=== PATIENT | female | born 1990 | race Caucasian/White ===

== ENCOUNTER 2021-10-29 12:07 | Outpatient (CLI) | payer BC, SELFPAY ==
[2021-10-29 15:26] LABS: TSH With Reflex to FT4* 0.932 uIU/mL (0.270-4.200)
--- OUTSIDE RECORDS SUMMARY | 2021-10-30 06:21 | XMS_ITS | Encounter Summary ---
:1990 Author Organization [facility] Address [address] [place] [address] Care Team Providers Name Role Phone Unavailable Primary Care Provider Unavailable Encounter Details Date Type Department Care Team Description 07/27/2019 Clinical Communication Department of [facility] Faye Minaya [facility] Yvan Serrano [facility], [address] [address] [place], [place] [phone] (Work) [phone] Social History Tobacco Use Types Packs/Day Years Used Date Smoking Tobacco: Never Assessed Sex Assigned at Date Recorded Female 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 - 07/29/2019 7:36 AM CDT That is fine; pend preferred BC and, if she is doing fine; ok to wait for visit until regular physical is due Telephone Encounter - Berenice Garrido LSheliaPSheliaNShelia - 07/27/2019 3:03 PM CDT Collins Foote: Patient is requesting you for provider. Would you be willing to see and prescribe control for her until that appt. Please review and advise. Telephone Encounter - Xin Leung - 07/27/2019 9:10 AM CDT Patient was seen at the [facility] in March. Her insurance has changed and she would like to switch her care to [place] when she is able to. She is wondering if she would be able to get aprescription for her control through on of our providers until she can get a pcp established. She would like to see Dr. Minaya if possible. Please give her a call back at [phone] to discuss further. Thank you. documented in this encounter Plan of Treatment Not on filedocumented as of this encounter Visit Diagnoses Not on filedocumented in this encounter
--- OUTSIDE RECORDS SUMMARY | 2021-10-30 06:21 | XMS_ITS | Encounter Summary ---
:1990 Author Organization [facility] Address [address] [place] [address] Care Team Providers Name Role Phone Unavailable Primary Care Provider Unavailable Encounter Details Date Type Department Care Team Description 03/28/2021 Admin Visit Department of Family Collin Nix, Medicine, 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
--- OUTSIDE RECORDS SUMMARY | 2021-10-30 06:21 | XMS_ITS | Encounter Summary ---
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
--- OUTSIDE RECORDS SUMMARY | 2021-10-30 06:21 | XMS_ITS | Encounter Summary ---
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 An appointment is required for testing, please call [phone] Thursday-Thursday 7am to 6pm and Thursday & Thursday 9am to 4pm to schedule an appointment. Testing hours are 8am - 4:30pm daily. You can also schedule via your Patient Online Services account., Please avoid using public transportation per CDC recommendation. If you do not have personal transportation please self- quarantine until a personal transportation option is available. *Reminder if sending patient for testing in [facility] or [facility], route encounter to the correct testing pool. documented in this encounter Plan of Treatment Not on filedocumented as of this encounter Visit Diagnoses Not on filedocumented in this encounter
--- OUTSIDE RECORDS SUMMARY | 2021-10-30 06:21 | XMS_ITS | Encounter Summary ---
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
--- OUTSIDE RECORDS SUMMARY | 2021-10-30 06:21 | XMS_ITS | Encounter Summary ---
:1990 Author Organization [facility] Address [address] [place] [address] Care Team Providers Name Role Phone Unavailable Primary Care Provider Unavailable Encounter Details Date Type Department Care Team Description 01/24/2021 Admin Visit Department of Family Collin Nix, Medicine, 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
--- OUTSIDE RECORDS SUMMARY | 2021-10-30 06:21 | XMS_ITS | Encounter Summary ---
:1990 Author Organization [facility] Address [address] [place] [address] Care Team Providers Name Role Phone Unavailable Primary Care Provider Unavailable Reason for Visit Reason Comments Med Refill Encounter Details Date Type Department Care Team Description 08/14/2020 Refill Department of [facility] Akiko Minaya D.O. 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 - 08/15/2020 10:39 AM CDT Refilled short course of prescription. Needs appt for further refills as she has not been seen in over 1 year. Please call to schedule a 30 min med check appt. documented in this encounter Plan of Treatment Not on filedocumented as of this encounter Visit Diagnoses Not on filedocumented in this encounter
--- OUTSIDE RECORDS SUMMARY | 2021-10-30 06:21 | XMS_ITS | Clinical Summary ---
:1990 Author Organization [facility] Address [address] [place] [address] Care Team Providers Name Role Phone Unavailable Primary Care Provider Unavailable Source Comments Patient records contain information from all sites at [facility]. For routine questions regarding patient records, call [phone] during business hours, M-F 8:00 AM - 5:00 PM Central Time. 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 Plan of Treatment Health Maintenance Due Date Last Done Comments Cervical Cancer Screening 1990 HIV Screening 1990 Hepatitis C Screening 1990 Depression Screening (Annual 03/23/2021 PHQ-2) Influenza Vaccine (#1) 2022 01/06/2019 DTaP,Tdap,and Td Vaccines (4 11/01/2023 10/31/2013, - Td or Tdap) 11/06/2010, 07/12/2002 Hepatitis B Vaccines Completed 2003, 10/18/2002, 07/12/2002 COVID-19 Vaccine Completed 02/28/2021, 06/27/2020 Pneumococcal vaccine (0-64 Aged Out No lo nger eligible based years) on patient's age to complete this to [facility] Insurance Payer Benefit Plan Subscriber ID Effective Dates Phone Address Type / Group [facility] [id number] 2021-Lenore [phone] [address] [address] [address] [facility] [address] [place] [address]
--- OUTSIDE RECORDS SUMMARY | 2021-10-30 06:21 | XMS_ITS | Encounter Summary ---
:1990 Author Organization [facility] Address [address] [place] [address] Care Team Providers Name Role Phone Unavailable Primary Care Provider Unavailable Encounter Details Date Type Department Care Team Description 04/01/2021 Admin Visit Department of Family Collin Nix, Medicine, 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
--- OUTSIDE RECORDS SUMMARY | 2021-10-30 06:21 | XMS_ITS | Encounter Summary ---
:[address] 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
--- OUTSIDE RECORDS SUMMARY | 2021-10-30 06:21 | XMS_ITS | Encounter Summary ---
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
--- OUTSIDE RECORDS SUMMARY | 2021-10-30 06:21 | XMS_ITS | Encounter Summary ---
:1990 Author Organization [facility] Address [address] [place] [address] Care Team Providers Name Role Phone Unavailable Primary Care Provider Unavailable Reason for Visit Reason Onset Date Comments Outpatient COVID-19 Testing 02/10/2020 Encounter Details Date Type Department Care Team Description 02/10/2020 Admin Visit Department of Family Infecti on Upper Medicine, Professional and R espiratory (Primary Dx) [facility] in [place], [place] [address] [place] [address] Social History Tobacco Use Types Packs/Day Years Used Date Smoking Tobacco: Never Assessed Sex Assigned at Date Recorded Female 03/28/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 - 02/10/2020 6:35 PM CST Encounter created for the drive-through COVID-19 testing. O/VIDEO ENGINEER documented in this encounter Miscellaneous Notes Result Encounter Note - Wellington Fritz M.D. - 02/11/2020 8:58 PM AUDIO/VIDEO ENGINEER PCR positive for SARS-CoV-2, the virus that causes COVID-19 infection. Based on chart review patientdoes not have high risk factors for complications. Will not be enrolled in CFCT. CFCT MAA, please send CFCTLOWRISKLETTER and portal message (if patient has the portal). Please also alert the patient's [facility] PCP (if applicable). You recently tested positive for SARS-CoV-2 by nasopharyngeal PCR, the gold standard test for diagnosing COVID-19 infection. This letter contains clinical and isolation recommendations for patients with COVID-19. If you have questions about the recommendations, please contact your local primary care physician or local health department. If you have a serious underlying medical condition (such as heart disease, lung disease or decreased functioning of your immune system) please respond to us so that we can assess your risk of COVID complications. If you have upcoming on-campus appointments, we recommend delaying non-urgent appointments until youhave recovered from your COVID infection. Our team will reach out to the area you are scheduled to be seen in. Please do not come to campus until given the ok to do so by a [facility] merchandiser retail representative. Please continue to monitor your symptoms. If you develop any of the following symptoms, please call your primary care physician or go to the Emergency Department for evaluation Worsened shortness of breath New or worsening cough New productive cough or cough with blood New chest pain or pain with breathing Fevers, chills, sweats Vomiting or diarrhea Lightheadedness New temperature > 38.3 ??C Fast heart rate Fast breathing rate If you need to go into the Emergency Room or other healthcare facility, please: Inform EMS of positive COVID result and wear a mask prior to EMS arrival if available. If well enough to transport yourself to the emergency room, you should use a private vehicle (not use taxi, ride-share or public transport). We strongly recommend continuing self-isolation until the following criteria are met and you are released by your local public health department if applicable: Minimum of 10 days since onset of symptoms OR from positive PCR test if asymptomatic AND At least 3 days (72 hours) have passed since recovery defined as resolution of fever without the useof fever-reducing medications AND Improvement in symptoms (e.g., cough, shortness of breath, diarrhea) The above isolation recommendation may need to be adjusted based on the clinical course. Https://www.youtube.com/watch?time_continue=6&v=ZuYF8rAmIBy&feature=emb_logo Testing prior to release from isolation is NOT recommended by CDC or [facility] Infection Prevention and Control for clinical purposes except in extremely rare cases. The patient was also advised to follow final recommendations as per local public health department/occupational health if relevant. Please contact your employer's occupational health division to notify them of positive test If the patient and/or their employer have questions about return to work best practices, they shouldcontact [facility] Occupational Medicine at [email or web address]. The patient should receive approval from their employer's occupational health division before returning to work. Recommend self isolation for all household members/close contacts. If any of these individuals are immunocompromised or have serious chronic medical conditions, pleasehave them contact their primary care physician to let them know they have been exposed to close contact with COVID-19 If unwell, recommend contacting their health care provider. Presenting directly to of the ED can be considered in the case of severe symptoms. These individuals should call ahead to minimize wait times. The [facility] COVID Triage Line can bereached at [phone]. COVID-19 is a notifiable disease and you will be contacted by [employer] for contact tracing. Please review the links below for additional education. [facility] recommendations on isolation https://www.[facility].org/patient-education?VID=VID-73390368 Additional information about COVID-19 https://www.cdc.gov/coronavirus/2019-ncov/ Cognitive Behavior Therapy-Insomnia to help improve sleep https://[facility]/PatientEducation/PatientLearning/index.html#/ Building Resiliency During the COVID-19 Pandemic https://[facility]2020/PatientEducation/content/index.html#/ Consider donating convalescent plasma once you have recovered from your illness (14 days after symptoms have resolved) Survey to assess eligibility: https://redcap2.[facility].edu/redcap/surveys/?s=6TLL3TBZ0G and/ or contact bassam onvalescent.plasma@[facility] More information is available at https://www.uscovidplasma.org/ https://ccpp19.org/ https://covidplasma.org/ COVID-19 Frontline Care Team [facility] [place] [facility] O/VIDEO ENGINEER documented in this encounter Plan of Treatment Not on filedocumented as of this encounter Procedures Procedure Name Priority Date/Time Associated Diagnosis Comme nts SARS CORONAVIRUS-2 Routine 02/10/2020 6:27 PM Infection Upper Results for this RNA, V AUDIO/VIDEO ENGINEER Respiratory procedure are i n the results section. documented in this encounter Results (ABNORMAL) SARS Coronavirus-2 RNA, V Symptomatic (02/10/2020 6:27 PM AUDIO/VIDEO ENGINEER) [facility] Method Time Signature SARS-CoV-2 Swab, 02/11/2020 ECLR Specimen Nasopharynx 7:05 PM AUDIO/VIDEO ENGINEER Source SARS CoV-2 Detected (C) Undetected 02/11/2020 ECLR RNA, TMA 7:05 PM AUDIO/VIDEO ENGINEER Comment: SARS-CoV-2 RNA present. ----ADDITIONAL INFORMATION---- This test is performed using the Aptima SARS-CoV-2 assay ([employer] which has received Emergency Use Authori zation (EUA) by the U.S. Food and Drug Administration. Fact sheets for this Emergency Use Autho rization (EUA) assay can be found at the following links: For Healthcare Providers: https://www.STEMpowerkids a.gov/media/936089/download For Patients: https://www.fda.gov/media/ 814135/download Specimen Anatomical Collection Method Collection Time Receive d Time (Source) Location / / Volume Laterality Varies 02/10/2020 6:27 PM 0 9:26 (Nasopharynx) AUDIO/VIDEO ENGINEER PM AUDIO/VIDEO ENGINEER Collin Nix P.A.-C. LAB MICROBIOLOGY - GENERAL O MADY Performing Organization Address City/State/ZIP Code Phon e Number [facility]- [address] [place] [phone] [facility] [place] [address] [address] documented in this encounter Visit Diagnoses Diagnosis Infection Upper Respiratory - Primary documented in this encounter Additional Health Concerns Infection Onset Date Last Indicated Resolved Time COVID19 Pending 02/09/2020 02/09/2020 02/11/2020 7:05 PM AUDIO/VIDEO ENGINEER documented as of this encounter
--- OUTSIDE RECORDS SUMMARY | 2021-10-30 06:21 | XMS_ITS | Encounter Summary ---
:1990 Author Organization [facility] Address [address] [place] [address] Care Team Providers Name Role Phone Unavailable Primary Care Provider Unavailable Reason for Referral Specialty Diagnoses / Procedures Referred By Contact Refer red To Contact Milagros Corey M.D. [facility] [address] [place] [address] Referral ID Status Reason Start Date Expiration Date Visits Requ ested Visits Authorized MEN'S TENNIS COACH Encounter Details Date Type Department Care Team Description 01/30/2021 Orders Only [facility] P[facility] Milagros Corey M.D. [address] [place], [place] [phone] (Wo rk) Social History Tobacco Use Types Packs/Day Years Used Date Smoking Tobacco: Never Assessed Sex Assigned at Date Recorded Female 03/28/2021 8:43 AM HEAD MEN'S TENNIS COACH documented as of this encounter Plan of Treatment Scheduled Referrals Name Type Priority Associated Order Schedule Diagnoses Covid immunization Outpatient Referral Routine Ex pected: office visit Booster 021 (Approximate), Expires: 01/30/2022 documented as of this encounter Visit Diagnoses Not on filedocumented in this encounter
--- OUTSIDE RECORDS SUMMARY | 2021-10-30 06:21 | XMS_ITS | Encounter Summary ---
:1990 Author Organization [facility] Address [address] [place] [address] Care Team Providers Name Role Phone Unavailable Primary Care Provider Unavailable Reason for Visit Reason Onset Date Comments Outpatient COVID-19 Testing 02/09/2020 Encounter Details Date Type Department Care Team Description 02/09/2020 External Outreach Department of [facility] [place] Rosette Nix Infection Upper Medicine, [place] T, P.[facility] Res[facility] (Primary Clinic, in [place], [address]) [place], [place] [address] [address] [place], [place] [phone] (Work) [phone] Social History Tobacco Use Types Packs/Day Years Used Date Smoking Tobacco: Never Assessed Sex Assigned at Date Recorded Female 03/28/2021 8:43 AM MANAGER REVENUE documented as of this encounter Progress Notes Chaya Tirado, LSheliaP.N. - 02/09/2020 2:45 PM CST Encounter created for the drive-through COVID-19 testing. GER REVENUE documented in this encounter Plan of Treatment Not on filedocumented as of this encounter Visit Diagnoses Diagnosis Infection Upper Respiratory - Primary documented in this encounter Additional Health Concerns Infection Onset Date Last Indicated Resolved Time COVID19 Pending 02/09/2020 02/09/2020 02/11/2020 7:05 PM MANAGER REVENUE documented as of this encounter
--- OUTSIDE RECORDS SUMMARY | 2021-10-30 06:21 | XMS_ITS | Encounter Summary ---
:1990 Author Organization [facility] Address [address] [place] [address] Care Team Providers Name Role Phone Unavailable Primary Care Provider Unavailable Encounter Details Date Type Department Care Team Description 02/01/2021 Orders Only RST PCP TH Milagros Barajas M.D. 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
--- OUTSIDE RECORDS SUMMARY | 2021-10-30 06:21 | XMS_ITS | Encounter Summary ---
:1990 Author Organization [facility] Address [address] [place] [address] Care Team Providers Name Role Phone Unavailable Primary Care Provider Unavailable Reason for Visit Reason Onset Date Comments Testing For Upper Respiratory Virus Symptoms 04/01/2021 Encounter Details Date Type Department Care Team Description 04/01/2021 External Outreach Department of [facility] Rosette Nix Contact With And (Suspected) Exposure To COVID-19; Medicine, [place] T, P.A.-C. 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 - 04/01/2021 8:07 AM CST Encounter created for symptomatic infectious disease screening with possible COVID, Influenza, RSV, and/or Group A Strep testing. HOUSE HELPER documented in this encounter Plan of Treatment Not on filedocumented as of this encounter Procedures Procedure Name Priority Date/Time Associated Diagnosis Comme nts SARS CORONAVIRUS-2 Routine 04/01/2021 8:58 AM Contact With And Results for this RNA, V DYE HOUSE HELPER (Suspected) Exposure procedu re are in To COVID-19 the results section. documented in this encounter Results SARS Coronavirus-2 RNA, V Symptomatic (04/01/2021 8:58 AM DYE HOUSE HELPER) [facility] Method Time Signature SARS-CoV-2 Swab, 04/02/2021 ECLR Specimen Nasopharynx 10:40 AM Source DYE HOUSE HELPER SARS CoV-2 Undetected Undetected 04/02/2021 ECLR RNA, TMA 10:40 AM DYE HOUSE HELPER Comment: SARS-CoV-2 RNA absent. This result does not rule out COVID-19 in the patient, as the sensitivity of the test depends o n the timing of the specimen collection and the quality of the specim en. Result should be correlated with patient's history and clinical presentat ion. ----ADDITIONAL INFORMATION---- This molecular amplification test was pe rformed using the Aptima SARS-CoV-2 assay ([employer] on the [employer] tem under emergency use authorization (EUA) by the U.S. Food and Drug Administ ration. Fact sheets for this EUA assay can be fo und at the following links: For Healthcare Providers: https://www.Hojoki a.gov/media/376957/download For Patients: https://www.fda.gov/media/ 326612/download Specimen Anatomical Collection Method Collection Time Receive d Time (Source) Location / / Volume Laterality Varies 04/01/2021 8:58 AM 3:11 (Nasopharynx) DYE HOUSE HELPER PM DYE HOUSE HELPER Collin Nix P.A.-C. LAB MICROBIOLOGY - GENERAL O MADY Performing Organization Address City/State/ZIP Code Phon e Number [facility]- [address] [place] [phone] [facility] [place] [address] System [address] documented in this encounter Visit Diagnoses Diagnosis Contact With And (Suspected) Exposure To COVID-19 Infection Upper Respiratory documented in this encounter Additional Health Concerns Infection Onset Date Last Indicated Resolved Time COVID19 Pending 04/01/2021 04/01/2021 04/02/2021 10:41 AM DYE HOUSE HELPER documented as of this encounter
--- OUTSIDE RECORDS SUMMARY | 2021-10-30 06:21 | XMS_ITS | Encounter Summary ---
:[address] [facility] Address [address] [place] [address] Care Team Providers Name Role Phone Unavailable Primary Care Provider Unavailable Encounter Details Date Type Department Care Team Description 04/06/2021 Admin Visit Department of Family Collin Nix, Medicine, [facility] 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
--- OUTSIDE RECORDS SUMMARY | 2021-10-30 06:21 | XMS_ITS | Encounter Summary ---
:1990 Author Organization [facility] Address [address] [place] [address] Care Team Providers Name Role Phone Unavailable Primary Care Provider Unavailable Reason for Visit Reason Onset Date Comments Testing For Upper Respiratory Virus Symptoms 01/23/2021 Encounter Details Date Type Department Care Team Description 01/23/2021 External Outreach Department of [facility] Rosette Nix Contact With And Medicine, [place] T P.A.-CShelia (Suspected) Exposure Clinic, in [address] To COVID-19 (Primary [place], [place] Dx) [address] [place] [address] [place], [place] [phone] (Work) [phone] Social History Tobacco Use Types Packs/Day Years Used Date Smoking Tobacco: Never Assessed Sex Assigned at Date Recorded 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 documented in this encounter Plan of Treatment Not on filedocumented as of this encounter Procedures Procedure Name Priority Date/Time Associated Diagnosis Comme nts SARS CORONAVIRUS-2 Routine 01/24/2021 11:35 AM Contact With An d Results for this RNA, V CDT (Suspected) Exposure procedu re are in To COVID-19 the results section. documented in this encounter Results SARS Coronavirus-2 RNA, V Symptomatic (01/24/2021 11:35 AM CDT) [facility] Method Time Signature SARS-CoV-2 Swab, 01/24/2021 ECLR Specimen Nasopharynx 9:29 PM CDT Source SARS CoV-2 Undetected Undetected 01/24/2021 ECLR RNA, TMA 9:29 PM CDT Comment: SARS-CoV-2 RNA absent. This result does not rule out COVID-19 in the patient, as the sensitivity of the test depends o n the timing of the specimen collection and the quality of the specim en. Result should be correlated with patient's history and clinical presentat ion. ----ADDITIONAL INFORMATION---- This molecular amplification test was pe rformed using the Aptima SARS-CoV-2 assay ([employer] on the [employer] tem under emergency use authorization (EUA) by the U.S. Food and Drug Administ ration. Fact sheets for this EUA assay can be fo und at the following links: For Healthcare Providers: https://www.fd a.gov/media/429252/download For Patients: https://www.fda.gov/media/ 938588/download Specimen Anatomical Collection Method Collection Time Receive d Time (Source) Location / / Volume Laterality Varies 01/24/2021 11:35 01/24/2021 2:50 (Nasopharynx) AM CDT PM CDT Collin Nix P.A.-C. LAB MICROBIOLOGY - GENERAL O MADY Performing Organization Address City/State/ZIP Code Phon e Number [facility]- [address] [place] [phone] [facility] [place] [address] System in [address] documented in this encounter Visit Diagnoses Diagnosis Contact With And (Suspected) Exposure To COVID-19 - Primary documented in this encounter Additional Health Concerns Infection Onset Date Last Indicated Resolved Time COVID19 Pending 01/23/2021 01/24/2021 01/24/2021 9:30 PM CDT documented as of this encounter
--- OUTSIDE RECORDS SUMMARY | 2021-10-30 06:21 | XMS_ITS | Encounter Summary ---
:1990 Author Organization [facility] Address [address] [place] [address] Care Team Providers Name Role Phone Unavailable Primary Care Provider Unavailable Reason for Visit Reason Onset Date Comments Testing For Upper Respiratory Virus Symptoms 04/05/2021 Encounter Details Date Type Department Care Team Description 04/05/2021 External Outreach Department of [facility] Rosette Nix Contact With And (Suspected) Exposure To COVID-19; Medicine, [place] T, P.A.-C. 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 - 04/05/2021 9:43 AM CST Encounter created for symptomatic infectious disease screening with possible COVID, Influenza, RSV, and/or Group A Strep testing. STERED VASCULAR TECHNOLOGIST (RVT) documented in this encounter Plan of Treatment Not on filedocumented as of this encounter Procedures Procedure Name Priority Date/Time Associated Diagnosis Comme nts INFLUENZA A/B AND Routine 04/06/2021 3:10 PM Infection Upper R esults for this RSV, PCR, VARIES REGISTERED VASCULAR TECHNOLOGIST (RVT) Respiratory procedure a re in the results section. SARS CORONAVIRUS-2 Routine 04/06/2021 3:10 PM Contact With And Results for this RNA, V REGISTERED VASCULAR TECHNOLOGIST (RVT) (Suspected) Exposure procedu re are in To COVID-19 the results section. documented in this encounter Results Influenza A/B and RSV, PCR, Varies (04/06/2021 3:10 PM REGISTERED VASCULAR TECHNOLOGIST (RVT)) [facility] Method Time Signature Influenza A/B Swab, 04/15/2021 DTL and RSV, Nasopharynx 1:48 AM REGISTERED VASCULAR TECHNOLOGIST (RVT) Source Influenza A, Undetected Undetected 04/15/2021 DTL PCR 1:48 AM REGISTERED VASCULAR TECHNOLOGIST (RVT) Comment: Influenza A RNA absent. Influenza B, PCR Undetected Undetected 04/15/2021 1:48 AM CS T DTL Comment: Influenza B RNA absent. Respiratory Syncytial Virus, PCR Undetected Undetected 1:48 AM REGISTERED VASCULAR TECHNOLOGIST (RVT) DTL Comment: RSV RNA absent. ----ADDITIONAL INFORMATION---- This test has been modified from the raritan nandor's instructions. Its performance characteristics were determi anastasia by [facility] in a manner consistent with CLIA requirements. This test has not been cleared or approved by the U.S. Food and Drug Administration . Specimen Anatomical Collection Method Collection Time Receive d Time (Source) Location / / Volume Laterality Varies 04/06/2021 3:10 PM 7:40 (Nasopharynx) REGISTERED VASCULAR TECHNOLOGIST (RVT) AM REGISTERED VASCULAR TECHNOLOGIST (RVT) Collin Nix P.A.-C. LAB MICROBIOLOGY - GENERAL O RDERABLES Performing Organization Address City/State/ZIP Code Phon e Number [facility] - [address] [place] [phone] [facility] [place] [address] [facility] 200 [facility] SARS Coronavirus-2 RNA, V Symptomatic (04/06/2021 3:10 PM REGISTERED VASCULAR TECHNOLOGIST (RVT)) [facility] Method Time Signature SARS-CoV-2 Swab, 04/07/2021 ECLR Specimen Nasopharynx 4:09 PM REGISTERED VASCULAR TECHNOLOGIST (RVT) Source SARS CoV-2 Undetected Undetected 04/07/2021 ECLR RNA, TMA 4:09 PM REGISTERED VASCULAR TECHNOLOGIST (RVT) Comment: SARS-CoV-2 RNA absent. This result does not rule out COVID-19 in the patient, as the sensitivity of the test depends o n the timing of the specimen collection and the quality of the specim en. Result should be correlated with patient's history and clinical presentat ion. ----ADDITIONAL INFORMATION---- This molecular amplification test was pe rformed using the Aptima SARS-CoV-2 assay ([employer] on the [employer] tem under emergency use authorization (EUA) by the U.S. Food and Drug Administ rohan. Fact sheets for this EUA assay can be fo und at the following links: For Healthcare Providers: https://www.[employer] a.gov/media/349648/download For Patients: https://www.fda.gov/media/ 983240/download Specimen Anatomical Collection Method Collection Time Receive d Time (Source) Location / / Volume Laterality Varies 04/06/2021 3:10 PM 9:28 (Nasopharynx) REGISTERED VASCULAR TECHNOLOGIST (RVT) PM REGISTERED VASCULAR TECHNOLOGIST (RVT) Collin Nix P.A.-C. LAB MICROBIOLOGY - GENERAL O LUCASERABLES Performing Organization Address City/State/ZIP Code Phon e Number [facility]- [address] [place] [address] [place] [address] [place] [address] System in [address] documented in this encounter Visit Diagnoses Diagnosis Contact With And (Suspected) Exposure To COVID-19 Infection Upper Respiratory documented in this encounter Additional Health Concerns Infection Onset Date Last Indicated Resolved Time COVID19 Pending 04/05/2021 04/06/2021 04/07/2021 4:09 PM REGISTERED VASCULAR TECHNOLOGIST (RVT) documented as of this encounter
--- OUTSIDE RECORDS SUMMARY | 2021-10-30 06:21 | XMS_ITS | Encounter Summary ---
:1990 Author Organization [facility] Address [address] [place] [address] Care Team Providers Name Role Phone Unavailable Primary Care Provider Unavailable Reason for Visit Reason Comments Med Refill Encounter Details Date Type Department Care Team Description 11/14/2020 Refill Department of Family Medicine, Susy Geiger M.D. 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 documented in this encounter Plan of Treatment Not on filedocumented as of this encounter Visit Diagnoses Not on filedocumented in this encounter
--- OUTSIDE RECORDS SUMMARY | 2021-10-30 06:21 | XMS_ITS | Encounter Summary ---
:1990 Author Organization [facility] Address [address] [place] [address] Care Team Providers Name Role Phone Unavailable Primary Care Provider Unavailable Reason for Visit Reason Onset Date Comments Testing For Upper Respiratory Virus Symptoms 03/28/2021 Encounter Details Date Type Department Care Team Description 03/28/2021 External Outreach Department of [facility] Rosette Nix Contact With And (Suspected) Exposure To COVID-19; Medicine, [place] T, P.A.-C. 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 - 03/28/2021 1:31 PM CST Encounter created for symptomatic infectious disease screening with possible COVID, Influenza, RSV, and/or Group A Strep testing. Y EQUIPMENT SERVICE TECHNICIAN documented in this encounter Plan of Treatment Not on filedocumented as of this encounter Procedures Procedure Name Priority Date/Time Associated Diagnosis Comme nts INFLUENZA A/B AND Routine 03/28/2021 3:28 PM Infection Upper R esults for this RSV, PCR, VARIES HEAVY EQUIPMENT SERVICE TECHNICIAN Respiratory procedure a re in the results section. SARS CORONAVIRUS-2 Routine 03/28/2021 3:28 PM Contact With And Results for this RNA, V HEAVY EQUIPMENT SERVICE TECHNICIAN (Suspected) Exposure procedu re are in To COVID-19 the results section. documented in this encounter Results Influenza A/B and RSV, PCR, Varies (03/28/2021 3:28 PM HEAVY EQUIPMENT SERVICE TECHNICIAN) [facility] Method Time Signature Influenza A/B Swab, 04/04/2021 DTL and RSV, Nasopharynx 6:53 AM HEAVY EQUIPMENT SERVICE TECHNICIAN Source Influenza A, Undetected Undetected 04/04/2021 DTL PCR 6:53 AM HEAVY EQUIPMENT SERVICE TECHNICIAN Comment: Influenza A RNA absent. Influenza B, PCR Undetected Undetected 04/04/2021 6:53 AM CS T DTL Comment: Influenza B RNA absent. Respiratory Syncytial Virus, PCR Undetected Undetected 6:53 AM HEAVY EQUIPMENT SERVICE TECHNICIAN DTL Comment: RSV RNA absent. ----ADDITIONAL INFORMATION---- This test has been modified from the hamden nandor's instructions. Its performance characteristics were determi anastasia by [facility] in a manner consistent with CLIA requirements. This test has not been cleared or approved by the U.S. Food and Drug Administration . Specimen Anatomical Collection Method Collection Time Receive d Time (Source) Location / / Volume Laterality Varies 03/28/2021 3:28 PM 2 (Nasopharynx) HEAVY EQUIPMENT SERVICE TECHNICIAN 10:07 PM HEAVY EQUIPMENT SERVICE TECHNICIAN Collin Nix P.A.-C. LAB MICROBIOLOGY - GENERAL O RDERABLES Performing Organization Address City/State/ZIP Code Phon e Number [facility] - [address] [place] [phone] [facility] [place] [address] Laboratories-[facility] 200 [facility] SARS Coronavirus-2 RNA, V Symptomatic (03/28/2021 3:28 PM HEAVY EQUIPMENT SERVICE TECHNICIAN) [facility] Method Time Signature SARS-CoV-2 Swab, 03/29/2021 ECLR Specimen Nasopharynx 4:51 PM HEAVY EQUIPMENT SERVICE TECHNICIAN Source SARS CoV-2 Undetected Undetected 03/29/2021 ECLR RNA, TMA 4:51 PM HEAVY EQUIPMENT SERVICE TECHNICIAN Comment: SARS-CoV-2 RNA absent. This result does not rule out COVID-19 in the patient, as the sensitivity of the test depends o n the timing of the specimen collection and the quality of the specim en. Result should be correlated with patient's history and clinical presentat ion. ----ADDITIONAL INFORMATION---- This molecular amplification test was pe rformed using the Aptima SARS-CoV-2 assay ([employer] on the [employer] tem under emergency use authorization (EUA) by the U.S. Food and Drug Administ rohan. Fact sheets for this EUA assay can be fo und at the following links: For Healthcare Providers: https://www.[employer] a.gov/media/268167/download For Patients: https://www.fda.gov/media/ 130972/download Specimen Anatomical Collection Method Collection Time Receive d Time (Source) Location / / Volume Laterality Varies 03/28/2021 3:28 PM 2 (Nasopharynx) HEAVY EQUIPMENT SERVICE TECHNICIAN 10:15 PM HEAVY EQUIPMENT SERVICE TECHNICIAN Collin Nix P.A.-C. LAB MICROBIOLOGY - GENERAL O LUCASERABLES Performing Organization Address City/State/ZIP Code Phon e Number [facility]- [address] [place] [address] [phone] [facility] [address] [place] [address] System in [address] documented in this encounter Visit Diagnoses Diagnosis Contact With And (Suspected) Exposure To COVID-19 Infection Upper Respiratory documented in this encounter Additional Health Concerns Infection Onset Date Last Indicated Resolved Time COVID19 Pending 03/28/2021 03/28/2021 03/29/2021 4:51 PM HEAVY EQUIPMENT SERVICE TECHNICIAN documented as of this encounter
--- OUTSIDE RECORDS SUMMARY | 2021-10-30 06:21 | XMS_ITS | Encounter Summary ---
:1990 Author Organization [facility] Address [address] [place] [address] Care Team Providers Name Role Phone Unavailable Primary Care Provider Unavailable Encounter Details Date Type Department Care Team Description 01/30/2021 Orders Only RST PCP TH Milagros Barajas M.D. 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
--- OUTSIDE RECORDS SUMMARY | 2021-10-30 06:22 | XMS_ITS | Encounter Summary ---
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
--- OUTSIDE RECORDS SUMMARY | 2021-10-30 06:22 | XMS_ITS | Encounter Summary ---
:1990 Author Organization [facility] Address [address] [place] [address] Care Team Providers Name Role Phone Unavailable Primary Care Provider Unavailable Encounter Details Date Type Department Care Team Description 02/18/2008 Hospital Encounter HX [facility] INPT/OBSRV Adelina Christianson M.D. 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
--- OUTSIDE RECORDS SUMMARY | 2021-10-30 06:22 | XMS_ITS | Encounter Summary ---
:1990 Author Organization [facility] Address [address] [place] [address] Care Team Providers Name Role Phone Unavailable Primary Care Provider Unavailable Encounter Details Date Type Department Care Team Description 03/28/2009 Hospital Encounter HX 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
--- OUTSIDE RECORDS SUMMARY | 2021-10-30 06:22 | XMS_ITS | Encounter Summary ---
:1990 Author Organization [facility] Address [address] [place] [address] Care Team Providers Name Role Phone Unavailable Primary Care Provider Unavailable Encounter Details Date Type Department Care Team Description 07/21/2007 Hospital Encounter HX [facility] INPT/OBSRV Akiko Gonzalez M.D. 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
--- OUTSIDE RECORDS SUMMARY | 2021-10-30 06:22 | XMS_ITS | Encounter Summary ---
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
--- OUTSIDE RECORDS SUMMARY | 2021-10-30 06:22 | XMS_ITS | Encounter Summary ---
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 Pager: Birthdate: 1990 Sex: F Address: [address] [place] [address] City: [place], [place] Service: [facility] CHIEF COMPLAINT / PURPOSE OF VISIT Triage nurse call: audelia aguilar is a 22 year old woman with an anal or rectal problem just saw blood in and on stool maroonish color and water pinkish or coppery , had some slight abdominal cramping during the day today feels fine otherwise , not weak or dizzy . no hx of ulcers , or rectal bleeding , or hemmrhoids .. will see doctor in am .. Calling from: [phone] HISTORY OF PRESENT ILLNESS: 1. Anal or rectal problem Rectal bleeding or red or black matter in stools Maroon, dark red or black tar-like stools PERTINENT NEGATIVES No: feeling sick or unwell No: bleeding No: uncontrollable or continuous rectal bleeding ; currently feeling like you are going to collapse every time you stand or sit up or new confusion or inability to stay alert and awake IMPRESSION / REPORT / PLAN: 1. Anal or rectal problem Possible serious gastrointestinal bleeding Plan: Acute appointment 12 hours Caller agrees System recommendation: Emergent Care - now Nurse override: Acute appointment 12 hours Rationale: no severe pain , dizziness or weakness only saw ? blood x1 in stool just now .. will see doctor in am or call back if any new or worsening of symptoms . No carepoints given. FINAL CALL DETAILS: Deliver call summary through email - Not eligible Intended level of care if assessment was not available: Emergency department Caller verbalized an understanding of the information and instructions given Caller's primary language: Albanian PERTINENT NEGATIVES No: charts accessed (none selected from list) [email or web address] Document Id: [id number] documented in this encounter Plan of Treatment Not on filedocumented as of this encounter Visit Diagnoses Not on filedocumented in this encounter
--- OUTSIDE RECORDS SUMMARY | 2021-10-30 06:22 | XMS_ITS | Encounter Summary ---
:1990 Author Organization [facility] Address [address] [place] [address] Care Team Providers Name Role Phone Unavailable Primary Care Provider Unavailable Encounter Details Date Type Department Care Team Description 11/06/2008 Hospital Encounter HX [facility] INPT/OBSRV Adelina Christianson M.D. 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
== END 2021-10-29 12:08 | disposition home or self-care (01) ==
LOC: NFLDREF 12:07
PROVIDERS: Visit Provider Registered Nurse
DX: Z31.41 Encounter for fertility testing (principal); R63.5 Abnormal weight gain; N94.6 Dysmenorrhea, unspecified
CPT/HCPCS: 84443